=== PATIENT | female | born 1965 | race Hispanic/Latino ===

== ENCOUNTER → 2025-08-10 | Outpatient (CLI) | payer BC ==
[~2025-08-10] MED LIST: GADOTERATE MEGLUMINE 10 MMOL/20 ML VIAL IV ONE
--- NOTE | 2025-08-11 01:39 | HMCIMG ---
MR Angiography of the Chest and Abdomen With and Without Contrast CLINICAL DETAILS: Unspecified abdominal pain and chest pain. TECHNIQUE: MR angiography of the chest and abdomen was performed using standard MRA protocols before and after intravenous contrast administration. Multiplanar reconstructions and angiographic sequences were obtained for detailed evaluation of the thoracic and abdominal vasculature and adjacent soft tissues. COMPARISON: No prior imaging is available for comparison.FINDINGS Thoracic Aorta and Great Vessels: The thoracic aorta demonstrates normal course, caliber, and signal characteristics with no evidence of aneurysm, dissection, stenosis, or mural abnormality. The arch vessels, including the brachiocephalic, left common carotid, and left subclavian arteries, arise normally and remain widely patent without focal narrowing. Abdominal Aorta and Major Branches: The abdominal aorta maintains normal caliber and contour, showing no aneurysm, dissection, or luminal narrowing. The celiac trunk arises with normal morphology and shows no evidence of stenosis. The superior mesenteric artery demonstrates normal origin and caliber without narrowing or evidence of extrinsic compression. The aortomesenteric angle measures 53 degrees, within normal limits, and the aortomesenteric region does not show duodenal compression. The inferior mesenteric artery and the renal arteries are bilaterally patent without stenosis. Chest Viscera: The heart and pericardium demonstrate normal morphology and signal without pericardial effusion. The mediastinum shows no focal mass or adenopathy. The visualized lung srinivasan are clear without consolidation or focal abnormality. Abdominal Parenchymal Organs: The liver demonstrates normal size, contour, and signal without focal lesions. The gallbladder is normal in morphology without cholelithiasis or wall thickening. The pancreas shows normal signal and size without ductal dilation. The spleen is normal in size and signal characteristics. Both adrenal glands appear normal in configuration without focal nodules. Kidneys and Urinary Tract: There is right renal hydronephrosis with abrupt caliber transition at the ureteropelvic junction, suggestive of UPJ obstruction. The left kidney shows no hydronephrosis. Renal parenchymal signal is preserved bilaterally, and the visualized ureters are otherwise unremarkable. Pelvic Organs: The uterus demonstrates normal size and signal characteristics, and the adnexa remain unremarkable with no masses or abnormal signal. The urinary bladder shows normal wall thickness without focal lesions. Gastrointestinal Tract: The appendix is visualized and appears unremarkable on series 9, image 10/35. The visualized small and large bowel loops are nondilated and do not show wall thickening or obstruction. No pericecal inflammatory changes are present. Lymph Nodes and Retroperitoneum: No significant retroperitoneal, mesenteric, pelvic, or inguinal lymphadenopathy is identified. Musculoskeletal System: There is grade I anterolisthesis of L4 over L5. No acute osseous abnormalities or marrow-replacing lesions are identified, and the surrounding paraspinal soft tissues appear normal. Abdominal Wall: The abdominal wall demonstrates normal appearance without defect or hernia.IMPRESSION: * Right renal hydronephrosis with abrupt caliber transition at the ureteropelvic junction, suggestive of UPJ obstruction. Recommend follow up with CT urography. * Grade I anterolisthesis of L4 over L5. * Normal MR angiographic appearance of the thoracic and abdominal aorta and major branches, including celiac trunk and SMA, without aneurysm, dissection, stenosis, or vascular compression. * Aortomesenteric angle measuring 53 degrees, within normal limits. No features to suggest SMA syndrome. * No abnormality of the remainder of the abdominal or pelvic viscera. /[place]
== END | disposition home or self-care (01) ==
LOC: RAH 07:45
PROVIDERS: ATTEND Family Medicine
DX: N13.39 Other hydronephrosis (principal); R07.9 Chest pain, unspecified; R10.9 Unspecified abdominal pain; R10.31 Right lower quadrant pain; M43.16 Spondylolisthesis, lumbar region
CPT/HCPCS: 71555; A9575; C8902